=== PATIENT | male | born 1930 | race Caucasian/White ===

== ENCOUNTER → 2017-01-06 | Outpatient (CLI) | payer MEDICARE, MEDICAID ==
[~2017-01-06] MED LIST: ANECREAM; ASPIRIN E.C. 8181 MG PO; CEPHALEXIN500 M1 PO; DULCOLAX TAB5 MG PO; FLOMAX 0.40.4 MG/CAP PO; GERI-TUSSI100 MG/5 M PO; NORCO 325 MG-101 TAB PO; OXY IR5 MG PO; PROAIR HFA0.09 MG/AC IH; TOPROL XL 50MG50 MG PO; TYLENOL 325MG325 MG PO; VASOTEC 10M10 MG/TAB PO; VASOTEC20 MG PO; ZOVIRAX800 MG PO
[2017-01-06 12:11] LABS: BASO % 0.5 % (0.0-2.0); EOS # 0.4 (0.0-0.7); GRAN # 2.9 (1.4-6.5); GRAN % 49.8 % (42.2-75.2); HEMOGLOBIN 12.2 g/dl (13.5-18.0); MEAN CELL VOLUME 91 fl (80.0-100.0); MEAN CORPUSCULAR HEMOGLOBIN 30 pg (27.0-31.0); MEAN CORPUSCULAR HGB CONC 34 g/dl (33.0-37.0); MEAN PLATELET VOLUME 9.9 fl (7.4-10.4); MONO # 0.5 (0.1-0.6); MONO % 8.4 % (1.7-9.3); PLATELET COUNT 176 K/mm3 (130-400); RED BLOOD COUNT 4.02 M/mm3 (4.20-5.60); REDCELL DISTRIBUTION WIDTH-CV 12.7 % (11.5-14.5); WHITE BLOOD COUNT 5.8 K/mm3 (4.8-10.8)
[2017-01-06 12:13] LABS: HEMATOCRIT 36.4 % (42.0-52.0)
[2017-01-06 12:29] LABS: CALCIUM 9.2 mg/dL (8.4-10.2); CREATININE, serum 1.11 mg/dL (0.66-1.25); POTASSIUM 4.5 mmol/L (3.4-5.0)
== END ==
LOC: ZCOL.LAB 11:57
PROVIDERS: Internal Medicine
DX: I10 Essential (primary) hypertension (principal); D72.828 Other elevated white blood cell count

== ENCOUNTER 2017-06-01 12:21 | Emergency (ER) | payer MEDICARE, MEDICAID ==
[~2017-06-01] VITALS: Ht 177.8 cm; Wt 70.2 kg
[~2017-06-01 12:21] MED LIST changes: -ANECREAM; -CEPHALEXIN500 M1 PO; -DULCOLAX TAB5 MG PO; -FLOMAX 0.40.4 MG/CAP PO; -GERI-TUSSI100 MG/5 M PO; -PROAIR HFA0.09 MG/AC IH; -TYLENOL 325MG325 MG PO; -VASOTEC20 MG PO; -ZOVIRAX800 MG PO
[2017-06-01 12:25] VITALS: TEMP 99.3
[2017-06-01] MEDS ORDERED: PROAIR HFA0.09 MG/AC IH (13:12)
[2017-06-01] MEDS ORDERED: GERI-TUSSI100 MG/5 M PO (13:13)
[2017-06-01] MEDS ORDERED: DULCOLAX TAB5 MG PO (13:14)
[2017-06-01] MEDS ORDERED: ANECREAM (13:15)
[2017-06-01] MEDS ORDERED: TYLENOL 325MG325 MG PO (13:15)
[2017-06-01 13:16] LABS: BASO % 0.2 % (0.0-2.0); EOS # 0.1 (0.0-0.7); EOS % 1.2 % (0-4.0); GRAN # 3.7 (1.4-6.5); GRAN % 62.5 % (42.2-75.2); LYMPH # 1.3 (1.2-3.4); LYMPH % 22.1 % (20.0-51.0); MEAN CELL VOLUME 91 fl (80.0-100.0); MEAN CORPUSCULAR HGB CONC 33 g/dl (33.0-37.0); MEAN PLATELET VOLUME 8.3 fl (7.4-10.4); MONO # 0.8 (0.1-0.6); MONO % 13.7 % (1.7-9.3); PLATELET COUNT 161 K/mm3 (130-400); RED BLOOD COUNT 3.69 M/mm3 (4.20-5.60); REDCELL DISTRIBUTION WIDTH-CV 12.5 % (11.5-14.5); WHITE BLOOD COUNT 5.8 K/mm3 (4.8-10.8)
[2017-06-01 13:17] LABS: HEMATOCRIT 33.6 % (42.0-52.0); HEMOGLOBIN 11.2 g/dl (13.5-18.0); MEAN CORPUSCULAR HEMOGLOBIN 30 pg (27.0-31.0)
[2017-06-01 13:28] LABS: ADJUSTED CALCIUM 8.9 mg/dL (8.4-10.2); ALBUMIN 4.3 gm/dL (3.5-5.0); BILIRUBIN,TOTAL 0.5 mg/dL (0.0-1.0); C-REACTIVE PROTEIN 1.2 mg/dL (0.0-0.9); CALCIUM 9.1 mg/dL (8.4-10.2); CREATININE, serum 1.02 mg/dL (0.66-1.25); POTASSIUM 4.8 mmol/L (3.4-5.0); TOTAL PROTEIN 7.4 gm/dL (6.4-8.2)
[2017-06-01 13:42] LABS: PH 6 (5-8); SQUAMOUS EPITHELIAL None Seen /hpf; URINE APPEARANCE Clear; URINE BACTERIA None Seen /hpf; URINE BILIRUBIN Negative (NEGATIVE); URINE BLOOD Negative (NEGATIVE); URINE COLOR Yellow; URINE GLUCOSE Negative (NEGATIVE); URINE KETONE Negative (NEGATIVE); URINE RBC 0-2 /hpf; URINE UROBILINOGEN Negative (NEGATIVE); URINE WBC 0-2 /hpf
[2017-06-01 14:39] VITALS: BP 119/57; PULSE 64
[2017-06-01] MEDS ORDERED: CEPHALEXIN500 M1 PO (15:05)
[2017-06-01] MEDS ORDERED: FLOMAX 0.40.4 MG/CAP PO (15:05)
[2017-06-02] MEDS ORDERED: ZOVIRAX800 MG PO (13:46)
== END 2017-06-01 15:13 | disposition home or self-care (01) ==
LOC: COL.ER 12:21
PROVIDERS: Emergency Medicine
DX: L03.317 Cellulitis of buttock (principal); I10 Essential (primary) hypertension; Z95.0 Presence of cardiac pacemaker; M54.2 Cervicalgia; G89.29 Other chronic pain; R33.9 Retention of urine, unspecified; R30.0 Dysuria; R35.0 Frequency of micturition

== ENCOUNTER 2017-06-02 12:42 | Emergency (ER) | payer MEDICARE ==
[~2017-06-02] VITALS: Ht 177.8 cm; Wt 73.4 kg
[~2017-06-02 12:42] MED LIST changes: +ANECREAM; +CEPHALEXIN500 M1 PO; +DULCOLAX TAB5 MG PO; +FLOMAX 0.40.4 MG/CAP PO; +GERI-TUSSI100 MG/5 M PO; +PROAIR HFA0.09 MG/AC IH; +TYLENOL 325MG325 MG PO
[2017-06-02 12:45] VITALS: BP 113/54; TEMP 97.5
[2017-06-02] MEDS ORDERED: ZOVIRAX800 MG PO (13:46)
[2017-06-02 14:31] VITALS: PULSE 80
== END 2017-06-02 14:14 | disposition home or self-care (01) ==
LOC: COL.ER 12:42
DX: R21 Rash and other nonspecific skin eruption (principal); I10 Essential (primary) hypertension; Z87.891 Personal history of nicotine dependence

== ENCOUNTER → 2017-06-13 | Outpatient (CLI) | payer MEDICARE, MEDICAID ==
[~2017-06-13] MED LIST changes: +ANECREAM30; +BETAPACE 80MG80 MG PO; +VASOTEC20 MG PO; +ZOVIRAX800 MG PO
== END ==
LOC: ZCOL.LAB 19:50
DX: Z01.89 Encounter for other specified special examinations (principal)

== ENCOUNTER → 2017-06-13 | Outpatient (CLI) | payer MEDICARE, MEDICAID ==
[2017-06-13 20:37] LABS: BASO % 0.4 % (0.0-2.0); EOS # 0.1 (0.0-0.7); EOS % 1.9 % (0-4.0); GRAN # 2.6 (1.4-6.5); GRAN % 47.3 % (42.2-75.2); LYMPH # 2.3 (1.2-3.4); LYMPH % 41.7 % (20.0-51.0); MEAN CELL VOLUME 94 fl (80.0-100.0); MEAN CORPUSCULAR HGB CONC 33 g/dl (33.0-37.0); MEAN PLATELET VOLUME 9.1 fl (7.4-10.4); MONO # 0.5 (0.1-0.6); MONO % 8.3 % (1.7-9.3); PLATELET COUNT 257 K/mm3 (130-400); RED BLOOD COUNT 3.43 M/mm3 (4.20-5.60); REDCELL DISTRIBUTION WIDTH-CV 12.8 % (11.5-14.5); WHITE BLOOD COUNT 5.4 K/mm3 (4.8-10.8)
[2017-06-13 20:45] LABS: HEMATOCRIT 32.1 % (42.0-52.0); HEMOGLOBIN 10.6 g/dl (13.5-18.0); MEAN CORPUSCULAR HEMOGLOBIN 31 pg (27.0-31.0)
[2017-06-13 20:51] LABS: CALCIUM 8.8 mg/dL (8.4-10.2); CREATININE, serum 1.06 mg/dL (0.66-1.25); POTASSIUM 4.7 mmol/L (3.4-5.0)
== END ==
LOC: ZCOL.LAB 20:17
PROVIDERS: Internal Medicine
DX: Z13.9 Encounter for screening, unspecified (principal); I10 Essential (primary) hypertension

== ENCOUNTER 2017-07-07 12:33 | Inpatient (IN) | payer MEDICARE, MEDICAID ==
[~2017-07-07] VITALS: Ht 180.3 cm; Wt 70.1 kg
[~2017-07-07 12:33] MED LIST changes: -ANECREAM30; -BETAPACE 80MG80 MG PO; -VASOTEC20 MG PO
[2017-07-11 09:03] LABS: MEAN CELL VOLUME 91 fl (80.0-100.0); MEAN CORPUSCULAR HGB CONC 33 g/dl (33.0-37.0); MEAN PLATELET VOLUME 8.8 fl (7.4-10.4); PLATELET COUNT 210 K/mm3 (130-400); REDCELL DISTRIBUTION WIDTH-CV 12.3 % (11.5-14.5); WHITE BLOOD COUNT 5.2 K/mm3 (4.8-10.8)
[2017-07-11 09:04] LABS: HEMATOCRIT 33.8 % (42.0-52.0); HEMOGLOBIN 11.3 g/dl (13.5-18.0); MEAN CORPUSCULAR HEMOGLOBIN 31 pg (27.0-31.0)
[2017-07-11 09:07] LABS: PROTHROMBIN TIME 11.1 SECONDS (9.7-12.8)
[2017-07-11 09:14] LABS: ADJUSTED CALCIUM 8.8 mg/dL (8.4-10.2); ALBUMIN 4.2 gm/dL (3.5-5.0); BILIRUBIN,TOTAL 0.5 mg/dL (0.0-1.0); CREATININE, serum 0.96 mg/dL (0.66-1.25); MAGNESIUM 2.1 mg/dL (1.6-2.3); POTASSIUM 4.4 mmol/L (3.4-5.0); TOTAL PROTEIN 7.3 gm/dL (6.4-8.2)
[2017-07-11 09:25] VITALS: BP 155/60; PULSE 69; TEMP 97.5
[2017-07-11] MEDS ORDERED: VASOTEC20 MG PO (10:20)
[2017-07-11 12:54] VITALS: BP 161/48; PULSE 97; TEMP 97.5
[2017-07-11 16:42] VITALS: BP 124/63; PULSE 77; TEMP 97.4
[2017-07-11 19:38] VITALS: BP 129/57; PULSE 82; TEMP 97.7
[2017-07-12] VITALS: BP 107/50; PULSE 62; TEMP 97.8
[2017-07-12 03:41] VITALS: BP 131/51; PULSE 64; TEMP 97.8
[2017-07-12 07:21] VITALS: BP 139/53; PULSE 71; TEMP 98.4
[2017-07-12 11:21] VITALS: BP 126/54; PULSE 69; TEMP 97.4
[2017-07-12 16:12] VITALS: BP 110/47; PULSE 65; TEMP 98.2
[2017-07-12 20:18] VITALS: BP 115/50; PULSE 64; TEMP 98.4
[2017-07-13 00:53] VITALS: BP 112/55; PULSE 63; TEMP 98.3
[2017-07-13 05:13] VITALS: BP 133/44; PULSE 59; TEMP 98.5
[2017-07-13 07:28] VITALS: BP 118/51; PULSE 67; TEMP 97.7
[2017-07-13] MEDS ORDERED: BETAPACE 80MG80 MG PO (10:26)
[2017-07-14] MEDS ORDERED: ANECREAM30 (04:18)
== END 2017-07-13 11:11 | disposition home or self-care (01) | DRG 310 ==
LOC: MEDICAL 07-11 07:37
PROVIDERS: Internal Medicine Cardiovascular Disease
DX: I48.0 Paroxysmal atrial fibrillation (principal); J44.9 Chronic obstructive pulmonary disease, unspecified; I10 Essential (primary) hypertension; K21.9 Gastro-esophageal reflux disease without esophagitis; I44.1 Atrioventricular block, second degree; Z95.0 Presence of cardiac pacemaker; Z87.891 Personal history of nicotine dependence

== ENCOUNTER 2017-07-14 02:13 | Emergency (ER) | payer MEDICARE ==
[~2017-07-14] VITALS: Ht 177.8 cm; Wt 70.5 kg
[~2017-07-14 02:13] MED LIST changes: +BETAPACE 80MG80 MG PO; +VASOTEC20 MG PO
[2017-07-14 02:19] VITALS: BP 161/72
[2017-07-14 03:27] VITALS: PULSE 62
[2017-07-14] MEDS ORDERED: ANECREAM30 (04:18)
== END 2017-07-14 03:27 | disposition home or self-care (01) ==
LOC: COL.ER 02:13
DX: G89.29 Other chronic pain (principal); M54.2 Cervicalgia; I48.91 Unspecified atrial fibrillation; Z95.0 Presence of cardiac pacemaker; Z79.82 Long term (current) use of aspirin

== ENCOUNTER → 2017-07-19 | Outpatient (CLI) | payer MEDICARE ==
[~2017-07-19] MED LIST changes: +ANECREAM30
[2017-07-19 16:05] LABS: BASO % 0.4 % (0.0-2.0); EOS # 0.3 (0.0-0.7); EOS % 5.8 % (0-4.0); GRAN # 2.4 (1.4-6.5); GRAN % 45.5 % (42.2-75.2); LYMPH % 38.4 % (20.0-51.0); MEAN CELL VOLUME 94 fl (80.0-100.0); MEAN CORPUSCULAR HGB CONC 32 g/dl (33.0-37.0); MEAN PLATELET VOLUME 9.5 fl (7.4-10.4); MONO # 0.5 (0.1-0.6); MONO % 9.5 % (1.7-9.3); PLATELET COUNT 220 K/mm3 (130-400); RED BLOOD COUNT 3.65 M/mm3 (4.20-5.60); REDCELL DISTRIBUTION WIDTH-CV 12.6 % (11.5-14.5); WHITE BLOOD COUNT 5.2 K/mm3 (4.8-10.8)
[2017-07-19 16:06] LABS: HEMATOCRIT 34.2 % (42.0-52.0); MEAN CORPUSCULAR HEMOGLOBIN 30 pg (27.0-31.0)
[2017-07-19 16:18] LABS: CREATININE, serum 0.89 mg/dL (0.66-1.25); POTASSIUM 4.6 mmol/L (3.4-5.0)
== END ==
LOC: ZCOL.LAB 15:53
PROVIDERS: Internal Medicine Cardiovascular Disease
DX: I44.1 Atrioventricular block, second degree (principal); I10 Essential (primary) hypertension; I05.9 Rheumatic mitral valve disease, unspecified

== ENCOUNTER 2018-02-28 09:17 | Emergency (ER) | payer MEDICARE ==
[~2018-02-28] VITALS: Ht 177.8 cm; Wt 71.4 kg
[2018-02-28 09:19] VITALS: BP 155/65; TEMP 98.5
[2018-02-28 10:56] VITALS: PULSE 68
== END 2018-02-28 10:55 | disposition home or self-care (01) ==
LOC: COL.ER 09:17
DX: S83.91XA Sprain of unspecified site of right knee, initial encounter (principal); M17.11 Unilateral primary osteoarthritis, right knee; I10 Essential (primary) hypertension; Z79.82 Long term (current) use of aspirin; X50.1XXA Overexertion from prolonged static or awkward postures, initial encounter

== ENCOUNTER → 2018-05-29 | Outpatient (REF) ==
[2018-05-29 15:04] LABS: BASO % 0.4 % (0.0-2.0); EOS # 0.3 (0.0-0.7); EOS % 5.7 % (0-4.0); GRAN # 2.6 (1.4-6.5); GRAN % 47.5 % (42.2-75.2); HEMOGLOBIN 11.5 g/dl (13.5-18.0); LYMPH % 37.2 % (20.0-51.0); MEAN CELL VOLUME 92 fl (80.0-100.0); MEAN CORPUSCULAR HEMOGLOBIN 30 pg (27.0-31.0); MEAN CORPUSCULAR HGB CONC 32 g/dl (33.0-37.0); MEAN PLATELET VOLUME 9.5 fl (7.4-10.4); MONO # 0.5 (0.1-0.6); PLATELET COUNT 215 K/mm3 (130-400); RED BLOOD COUNT 3.87 M/mm3 (4.20-5.60)
[2018-05-29 15:06] LABS: HEMATOCRIT 35.6 % (42.0-52.0)
[2018-05-29 15:18] LABS: ALBUMIN 4.3 gm/dL (3.5-5.0); BILIRUBIN,TOTAL 0.4 mg/dL (0.0-1.0); CALCIUM 8.8 mg/dL (8.4-10.2); CHOLESTEROL RISK RATIO 2.9; CREATININE, serum 1.11 mg/dL (0.66-1.25); POTASSIUM 3.8 mmol/L (3.4-5.0); TOTAL PROTEIN 7.7 gm/dL (6.4-8.2)
[2018-05-29 15:47] LABS: THYROID STIMULATING HORMONE 1.96 uIU/mL (0.465-4.680)
== END ==
LOC: ZCOL.LAB 14:58
PROVIDERS: Internal Medicine
DX: D51.8 Other vitamin B12 deficiency anemias (principal); I44.1 Atrioventricular block, second degree; I10 Essential (primary) hypertension; E56.9 Vitamin deficiency, unspecified

== ENCOUNTER → 2018-08-24 | Outpatient (CLI) | payer MEDICARE ==
[2018-08-24 13:48] LABS: CALCIUM 9.1 mg/dL (8.4-10.2); CREATININE, serum 0.89 mg/dL (0.66-1.25); POTASSIUM 4.5 mmol/L (3.4-5.0)
[2018-08-24 14:19] LABS: THYROID STIMULATING HORMONE 1.68 uIU/mL (0.465-4.680)
== END ==
LOC: ZCOL.LAB 11:48
PROVIDERS: Internal Medicine
DX: E11.9 Type 2 diabetes mellitus without complications (principal); E03.9 Hypothyroidism, unspecified; I10 Essential (primary) hypertension

== ENCOUNTER → 2018-11-07 | Outpatient (CLI) | payer MEDICARE ==
[2018-11-07 17:34] LABS: COLLECTION METHOD RANDOM VOIDED
[2018-11-07 17:52] LABS: BASO % 0.6 % (0.0-2.0); EOS # 0.4 (0.0-0.7); GRAN # 2.4 (1.4-6.5); GRAN % 45.3 % (42.2-75.2); HEMOGLOBIN 10.9 g/dl (13.5-18.0); LYMPH # 1.9 (1.2-3.4); LYMPH % 36.6 % (20.0-51.0); MEAN CELL VOLUME 93 fl (80.0-100.0); MEAN CORPUSCULAR HEMOGLOBIN 31 pg (27.0-31.0); MEAN CORPUSCULAR HGB CONC 33 g/dl (33.0-37.0); MEAN PLATELET VOLUME 9.6 fl (7.4-10.4); MONO # 0.5 (0.1-0.6); MONO % 10.1 % (1.7-9.3); PLATELET COUNT 177 K/mm3 (130-400); RED BLOOD COUNT 3.56 M/mm3 (4.20-5.60); REDCELL DISTRIBUTION WIDTH-CV 12.7 % (11.5-14.5)
[2018-11-07 17:58] LABS: PH 5 (5-8); SQUAMOUS EPITHELIAL None Seen /hpf; URINE APPEARANCE Clear; URINE BACTERIA None Seen /hpf; URINE BILIRUBIN Negative (NEGATIVE); URINE BLOOD 1+ (NEGATIVE); URINE COLOR Yellow; URINE GLUCOSE Negative (NEGATIVE); URINE KETONE Negative (NEGATIVE); URINE LEUKOCYTE ESTERASE Negative (NEGATIVE); URINE NITRATE Negative (NEGATIVE); URINE PROTEIN(semi-quant) Negative (NEGATIVE); URINE RBC 0-2 /hpf; URINE UROBILINOGEN Negative (NEGATIVE); URINE WBC 0-2 /hpf
== END ==
LOC: ZCOL.LAB 17:29
PROVIDERS: Internal Medicine
DX: Z00.00 Encounter for general adult medical examination without abnormal findings (principal); I10 Essential (primary) hypertension; F32.0 Major depressive disorder, single episode, mild; M71.9 Bursopathy, unspecified; M54.5 Low back pain; R30.0 Dysuria

== ENCOUNTER → 2019-05-08 | Outpatient (CLI) | payer MEDICARE ==
[2019-05-08 16:50] LABS: MEAN CELL VOLUME 96 fl (80.0-100.0); MEAN CORPUSCULAR HEMOGLOBIN 31 pg (27.0-31.0); MEAN CORPUSCULAR HGB CONC 32 g/dl (33.0-37.0); MEAN PLATELET VOLUME 9.8 fl (7.4-10.4); PLATELET COUNT 167 K/mm3 (130-400); RED BLOOD COUNT 3.27 M/mm3 (4.20-5.60); REDCELL DISTRIBUTION WIDTH-CV 12.8 % (11.5-14.5)
[2019-05-08 16:51] LABS: HEMATOCRIT 31.3 % (42.0-52.0)
[2019-05-08 17:08] LABS: CREATININE, serum 0.97 (0.66-1.25); POTASSIUM 4.3 mmol/L (3.4-5.0)
== END ==
LOC: ZCOL.LAB 12:29
PROVIDERS: Nurse Practitioner
DX: I10 Essential (primary) hypertension (principal); D64.9 Anemia, unspecified

== ENCOUNTER → 2019-10-16 | Outpatient (CLI) | payer MEDICARE ==
[2019-10-16 10:19] LABS: BASO % 0.4 % (0.0-2.0); EOS # 0.3 (0.0-0.7); EOS % 5.8 % (0-4.0); GRAN # 2.5 (1.4-6.5); GRAN % 50.9 % (42.2-75.2); HEMOGLOBIN 10.4 g/dl (13.5-18.0); LYMPH # 1.5 (1.2-3.4); LYMPH % 31.5 % (20.0-51.0); MEAN CELL VOLUME 95 fl (80.0-100.0); MEAN CORPUSCULAR HEMOGLOBIN 30 pg (27.0-31.0); MEAN CORPUSCULAR HGB CONC 32 g/dl (33.0-37.0); MEAN PLATELET VOLUME 9.7 fl (7.4-10.4); MONO # 0.5 (0.1-0.6); MONO % 11.2 % (1.7-9.3); PLATELET COUNT 183 K/mm3 (130-400); RED BLOOD COUNT 3.45 M/mm3 (4.20-5.60); REDCELL DISTRIBUTION WIDTH-CV 12.4 % (11.5-14.5)
[2019-10-16 10:25] LABS: HEMATOCRIT 32.9 % (42.0-52.0)
[2019-10-16 11:19] LABS: ALBUMIN 4.1 gm/dL (3.5-5.0); BILIRUBIN,TOTAL 0.2 mg/dL (0.0-1.0); CALCIUM 8.9 mg/dL (8.4-10.2); CHOLESTEROL RISK RATIO 3.1; CREATININE, serum 1.13 (0.66-1.25); POTASSIUM 5.2 mmol/L (3.4-5.0); TOTAL PROTEIN 7.2 gm/dL (6.4-8.2)
== END ==
LOC: COL.LAB 08:38
PROVIDERS: Internal Medicine
DX: I48.0 Paroxysmal atrial fibrillation (principal); E78.5 Hyperlipidemia, unspecified; E11.9 Type 2 diabetes mellitus without complications

== ENCOUNTER → 2020-11-12 | Outpatient (CLI) | payer MEDICARE ==
[2020-11-12 14:49] LABS: IRON,SERUM 79 ug/dL (35-150)
[2020-11-12 14:58] LABS: TOTAL IRON BINDING CAPACITY 359 ug/dL (261-462)
== END ==
LOC: ZCOL.LAB 14:34
PROVIDERS: Internal Medicine
DX: D51.8 Other vitamin B12 deficiency anemias (principal); E87.6 Hypokalemia; D51.9 Vitamin B12 deficiency anemia, unspecified

== ENCOUNTER → 2020-11-20 | Outpatient (CLI) | payer MEDICARE | LOC: ZCOL.LAB 11:13 | DX: R79.9 Abnormal finding of blood chemistry, unspecified (principal) ==

== ENCOUNTER → 2020-12-16 | Outpatient (CLI) | payer MEDICARE ==
[~2020-12-16] MED LIST changes: +B-12 500 MCG PO; +COLACE 100100 MG/CAP PO; +PROTONIX20 MG PO; +TOPROL XL100 MG PO
== END ==
LOC: ZCOL.LAB 08:19
DX: D51.9 Vitamin B12 deficiency anemia, unspecified (principal)

== ENCOUNTER → 2021-01-29 | Outpatient (CLI) | payer MEDICARE, MEDICAID ==
[2021-01-29 09:39] LABS: BASO % 0.6 % (0.0-2.0); EOS # 0.4 (0.0-0.7); EOS % 6.4 % (0-4.0); GRAN # 3.2 (1.4-6.5); GRAN % 48.7 % (42.2-75.2); HEMOGLOBIN 10.4 g/dl (13.5-18.0); LYMPH # 2.2 (1.2-3.4); LYMPH % 33.3 % (20.0-51.0); MEAN CELL VOLUME 95 fl (80.0-100.0); MEAN CORPUSCULAR HEMOGLOBIN 30 pg (27.0-31.0); MEAN CORPUSCULAR HGB CONC 32 g/dl (33.0-37.0); MEAN PLATELET VOLUME 9.6 fl (7.4-10.4); MONO # 0.7 (0.1-0.6); MONO % 10.5 % (1.7-9.3); PLATELET COUNT 201 K/mm3 (130-400); RED BLOOD COUNT 3.44 M/mm3 (4.20-5.60); REDCELL DISTRIBUTION WIDTH-CV 13.1 % (11.5-14.5)
[2021-01-29 09:43] LABS: ALBUMIN 4.1 gm/dL (3.5-5.0); BILIRUBIN,TOTAL 0.1 mg/dL (0.0-1.0); CALCIUM 8.7 mg/dL (8.4-10.2); CHOLESTEROL RISK RATIO 3.1; CREATININE, serum 1.2 (0.66-1.25); POTASSIUM 5.1 mmol/L (3.4-5.0); TOTAL PROTEIN 7.7 gm/dL (6.4-8.2)
[2021-01-29 09:48] LABS: HEMATOCRIT 32.8 % (42.0-52.0)
== END ==
LOC: ZCOL.LAB 08:29
PROVIDERS: Internal Medicine
DX: E78.5 Hyperlipidemia, unspecified (principal); E11.65 Type 2 diabetes mellitus with hyperglycemia; D51.9 Vitamin B12 deficiency anemia, unspecified; E55.9 Vitamin D deficiency, unspecified; Z79.01 Long term (current) use of anticoagulants

== ENCOUNTER → 2021-02-08 | Outpatient (CLI) | payer MEDICARE, MEDICAID | LOC: ZCOL.LAB 06:39 | DX: E55.9 Vitamin D deficiency, unspecified (principal) ==

== ENCOUNTER 2021-04-21 00:52 | Emergency (ER) | payer MEDICARE, MEDICAID ==
[~2021-04-21] VITALS: Ht 177.8 cm; Wt 68.2 kg
[~2021-04-21 00:52] MED LIST changes: -B-12 500 MCG PO; -COLACE 100100 MG/CAP PO; -PROTONIX20 MG PO; -TOPROL XL100 MG PO
[2021-04-21 03:17] VITALS: BP 156/76; PULSE 64; TEMP 98.7
== END 2021-04-21 03:02 | disposition home or self-care (01) ==
LOC: COL.ER 00:52
DX: M54.2 Cervicalgia (principal); G89.29 Other chronic pain; Z87.891 Personal history of nicotine dependence

== ENCOUNTER 2021-04-24 19:51 | Emergency (ER) | payer MEDICARE, MEDICAID, OTHER ==
[~2021-04-24] VITALS: Ht 180.3 cm; Wt 70.9 kg
[2021-04-24 19:53] VITALS: TEMP 97.8
[2021-04-24 20:33] LABS: BASO % 0.1 % (0.0-2.0); EOS % 0.2 % (0-4.0); GRAN # 5.9 (1.4-6.5); GRAN % 68.7 % (42.2-75.2); LYMPH # 1.8 (1.2-3.4); LYMPH % 21.2 % (20.0-51.0); MEAN CELL VOLUME 92 fl (80.0-100.0); MEAN CORPUSCULAR HGB CONC 33 g/dl (33.0-37.0); MEAN PLATELET VOLUME 8.9 fl (7.4-10.4); MONO # 0.8 (0.1-0.6); PLATELET COUNT 208 K/mm3 (130-400); RED BLOOD COUNT 3.18 M/mm3 (4.20-5.60); REDCELL DISTRIBUTION WIDTH-CV 12.9 % (11.5-14.5)
[2021-04-24 20:34] LABS: HEMATOCRIT 29.1 % (42.0-52.0); HEMOGLOBIN 9.5 g/dl (13.5-18.0); MEAN CORPUSCULAR HEMOGLOBIN 30 pg (27.0-31.0)
[2021-04-24 20:43] LABS: ALBUMIN 4.2 gm/dL (3.5-5.0); BILIRUBIN,TOTAL 0.1 mg/dL (0.0-1.0); CALCIUM 9.3 mg/dL (8.4-10.2); CREATININE, serum 1.19 (0.66-1.25); POTASSIUM 4.3 mmol/L (3.4-5.0); TOTAL PROTEIN 7.7 gm/dL (6.4-8.2)
[2021-04-24 20:55] LABS: TROPONIN-I 0.015 ng/mL (0.000-0.035)
[2021-04-24] MEDS ORDERED: PROTONIX20 MG PO (21:33)
[2021-04-24 21:42] VITALS: BP 131/72; PULSE 72
== END 2021-04-24 21:42 | disposition home or self-care (01) ==
LOC: COL.ER 19:51
PROVIDERS: Emergency Medicine
DX: R06.02 Shortness of breath (principal); K21.9 Gastro-esophageal reflux disease without esophagitis; R55 Syncope and collapse; R42 Dizziness and giddiness; I48.0 Paroxysmal atrial fibrillation; I10 Essential (primary) hypertension; Z95.0 Presence of cardiac pacemaker; Z87.891 Personal history of nicotine dependence; Z79.82 Long term (current) use of aspirin; Z79.899 Other long term (current) drug therapy

== ENCOUNTER 2021-06-11 12:14 | Emergency (ER) | payer MEDICARE, MEDICAID ==
[~2021-06-11] VITALS: Ht 180.3 cm; Wt 70.9 kg
[~2021-06-11 12:14] MED LIST changes: +PROTONIX20 MG PO
[2021-06-11 12:30] VITALS: TEMP 98.3
[2021-06-11 12:53] LABS: BASO % 0.5 % (0.0-2.0); EOS # 0.3 (0.0-0.7); EOS % 5.1 % (0-4.0); GRAN # 3.5 (1.4-6.5); GRAN % 55.3 % (42.2-75.2); LYMPH # 1.7 (1.2-3.4); LYMPH % 26.8 % (20.0-51.0); MEAN CELL VOLUME 96 fl (80.0-100.0); MEAN CORPUSCULAR HGB CONC 31 g/dl (33.0-37.0); MEAN PLATELET VOLUME 8.8 fl (7.4-10.4); MONO # 0.8 (0.1-0.6); PLATELET COUNT 196 K/mm3 (130-400); RED BLOOD COUNT 3.24 M/mm3 (4.20-5.60); REDCELL DISTRIBUTION WIDTH-CV 12.8 % (11.5-14.5)
[2021-06-11 12:55] LABS: COLLECTION METHOD CLEAN CATCH
[2021-06-11 12:57] LABS: HEMATOCRIT 31.1 % (42.0-52.0); HEMOGLOBIN 9.6 g/dl (13.5-18.0); MEAN CORPUSCULAR HEMOGLOBIN 30 pg (27.0-31.0)
[2021-06-11 13:01] LABS: MUCOUS Present /lpf; PH 5 (5-8); URINE APPEARANCE Clear; URINE BACTERIA None Seen /hpf; URINE BILIRUBIN Negative (NEGATIVE); URINE BLOOD 1+ (NEGATIVE); URINE COLOR Straw; URINE GLUCOSE Negative (NEGATIVE); URINE KETONE Negative (NEGATIVE); URINE LEUKOCYTE ESTERASE Negative (NEGATIVE); URINE NITRATE Negative (NEGATIVE); URINE PROTEIN(semi-quant) Negative (NEGATIVE); URINE RBC 0-2 /hpf; URINE UROBILINOGEN Negative (NEGATIVE)
[2021-06-11 13:04] LABS: SQUAMOUS EPITHELIAL 0-2 /hpf
[2021-06-11 13:04] LABS: ALANINE AMINOTRANSFERASE 10 U/L (4-49); ALBUMIN 3.9 gm/dL (3.5-5.0); ALKALINE PHOSPHATASE 60 U/L (50-136); ANION GAP 6 mmol/L (7-16); AST,SGOT 27 U/L (15-37); BILIRUBIN,TOTAL 0.2 mg/dL (0.0-1.0); BLOOD UREA NITROGEN 18 mg/dL (9-20); CALCIUM 8.3 mg/dL (8.4-10.2); CARBON DIOXIDE 27 mmol/L (22-30); CHLORIDE 102 mmol/L (98-107); CREATININE, serum 1.06 (0.66-1.25); GLUCOSE 117 mg/dL (74-106); POTASSIUM 4.6 mmol/L (3.4-5.0); SODIUM 135 mmol/L (137-145); TOTAL PROTEIN 7.5 gm/dL (6.4-8.2)
[2021-06-11 13:11] LABS: LIPASE 36 U/L (23-300)
[2021-06-11 13:16] LABS: TROPONIN-I < 0.012 ng/mL (0.000-0.035)
[2021-06-11 15:54] VITALS: BP 152/77; PULSE 62
== END 2021-06-11 16:02 | disposition home or self-care (01) ==
LOC: COL.ER 12:14
PROVIDERS: Emergency Medicine
DX: R10.32 Left lower quadrant pain (principal); I48.91 Unspecified atrial fibrillation; I10 Essential (primary) hypertension; Z90.49 Acquired absence of other specified parts of digestive tract; Z87.891 Personal history of nicotine dependence; Z79.899 Other long term (current) drug therapy; Z79.1 Long term (current) use of non-steroidal anti-inflammatories (NSAID)
CPT/HCPCS: J3010; Q9967

== ENCOUNTER 2021-07-03 09:17 | Day surgery (SDC) | payer MEDICARE, MEDICAID ==
[~2021-07-03] VITALS: Ht 180.3 cm; Wt 71.1 kg
[2021-07-03 09:45] VITALS: BP 137/58; PULSE 58; TEMP 97.9
[2021-07-03] MEDS ORDERED: COLACE 100100 MG/CAP PO (10:17)
[2021-07-03] MEDS ORDERED: B-12 500 MCG PO (10:19)
[2021-07-03] MEDS ORDERED: TOPROL XL100 MG PO (10:20)
[2021-07-03 11:25] VITALS: BP 134/63; PULSE 86; TEMP 97.9
[2021-07-03 11:30] VITALS: BP 129/56; PULSE 68
[2021-07-03 11:45] VITALS: BP 134/61; PULSE 61
[2021-07-03 12:00] VITALS: BP 140/61; PULSE 60
--- NOTE | 2021-07-03 12:19 | NUR ---
1125 Pt returns from endo procedure via cart and RN assist to [facility] . Pt ambulates from cart to recliner with RN assist. Monitors on and alarms set. Call light within reach. Report received from STACIE Caballero. Pt alert and oriented. Pt requests water and muffin. Pt denies any pain or nausea. 1135 Pt taking food and drink well. No complications noted. 1216 Discharge instructions given to pt and granddaughter. All questions answered to their satisfaction. Handed to pt are a thank you card and discharge information. 1219 Pt transferred out of the hospital via wheelchair and [place] assist, to private vehicle driven by granddaughter.
[2021-07-03 15:05] VITALS: BP 119/57; PULSE 60
== END 2021-07-03 12:19 | disposition home or self-care (01) ==
LOC: SDCO 09:17
DX: D12.5 Benign neoplasm of sigmoid colon (principal); R19.5 Other fecal abnormalities; D50.9 Iron deficiency anemia, unspecified; K64.1 Second degree hemorrhoids; K57.30 Diverticulosis of large intestine without perforation or abscess without bleeding; J44.9 Chronic obstructive pulmonary disease, unspecified; I10 Essential (primary) hypertension; I45.10 Unspecified right bundle-branch block; I44.1 Atrioventricular block, second degree; I48.91 Unspecified atrial fibrillation; K21.9 Gastro-esophageal reflux disease without esophagitis; G47.00 Insomnia, unspecified; G47.33 Obstructive sleep apnea (adult) (pediatric); M19.90 Unspecified osteoarthritis, unspecified site; Z90.89 Acquired absence of other organs; Z87.891 Personal history of nicotine dependence; Z79.82 Long term (current) use of aspirin; Z98.84 Bariatric surgery status; Z79.891 Long term (current) use of opiate analgesic; Z79.899 Other long term (current) drug therapy
CPT/HCPCS: J2704; J7030

== ENCOUNTER 2021-07-23 10:15 | Emergency (ER) | payer MEDICARE, MEDICAID ==
[~2021-07-23] VITALS: Ht 177.8 cm; Wt 68.6 kg
[~2021-07-23 10:15] MED LIST changes: +B-12 500 MCG PO; +COLACE 100100 MG/CAP PO; +TOPROL XL100 MG PO
[2021-07-23 11:21] VITALS: BP 159/67; PULSE 95; TEMP 97.8
[2021-07-23] MEDS ORDERED: NORCO 325 MG-101 TAB PO ×2 (11:35→12:03)
== END 2021-07-23 12:29 | disposition home or self-care (01) ==
LOC: COL.ER 10:15
DX: Z76.0 Encounter for issue of repeat prescription (principal); I10 Essential (primary) hypertension; K21.9 Gastro-esophageal reflux disease without esophagitis; Z79.899 Other long term (current) drug therapy